=== PATIENT | female | born 1975 | race African-American/Black ===

== ENCOUNTER → 2017-03-12 | Outpatient (CLI) | payer OTHER ==
--- NOTE | 2017-03-12 17:08 | REPMRS ---
Patient History The patient states she has not had a clinical breast exam in over a year. Family history of unknown cancer in mother at age 64. Digital Mammo Screening Bilat: March 12, 2017 - Exam #: [id number] Bilateral CC and MLO view(s) were taken. Technologist: Malou Cox, Technologist Prior study comparison: November 22, 2015, bilateral digital mammo screening bilat performed at [facility]. March 18, 2014, diagnostic bilateral mammo, performed at [facility]. FINDINGS: The breast tissue is heterogeneously dense. This may lower the sensitivity of mammography. There is a moderate amount of heterogeneously dense fibroglandular tissue which is fairly symmetric. There is a needle biopsy marker clip in the right breast. There is no interval development of dominant mass, architectural distortion, or clustered microcalcification typical of malignancy. There has been no change in the appearance of the mammogram from the prior studies. ASSESSMENT: BI-RADS/ACR category 1 mammogram. Negative. Recommendation Routine screening mammogram of both breasts in 1 year (for women over age 40). This mammogram was interpreted with the aid of an FDA-approved computer-aided dectection system. Electronically Signed By: James Farrell MD 03/12/17 2924
== END ==
LOC: M RAD 16:26
DX: Z12.31 Encounter for screening mammogram for malignant neoplasm of breast (principal)